=== PATIENT | male | born 1995 | race Caucasian/White ===

== ENCOUNTER 2021-08-03 06:29 | Emergency (ER) | payer OTHER ==
[~2021-08-03] VITALS: Ht 182.9 cm; Wt 91.8 kg
[2021-08-03] MEDS ORDERED: ONDA4TAB6 PO (09:35)
[2021-08-03 09:37] VITALS: BP 138/86
== END 2021-08-03 09:39 | disposition home or self-care (01) ==
LOC: M ED 06:29
DX: G43.909 Migraine, unspecified, not intractable, without status migrainosus (principal); D75.A Glucose-6-phosphate dehydrogenase (G6PD) deficiency without anemia

== ENCOUNTER 2023-01-16 10:01 | Emergency (ER) | payer OTHER ==
[~2023-01-16] VITALS: Ht 180.3 cm; Wt 94.0 kg
[~2023-01-16 10:01] MED LIST: ONDA4TAB6 PO
[2023-01-16 12:42] VITALS: BP 133/89
== END 2023-01-16 12:45 | disposition home or self-care (01) ==
LOC: M ED 10:01
DX: S62.306A Unspecified fracture of fifth metacarpal bone, right hand, initial encounter for closed fracture (principal); W22.09XA Striking against other stationary object, initial encounter; Y92.009 Unspecified place in unspecified non-institutional (private) residence as the place of occurrence of the external cause; Y93.89 Activity, other specified; Y99.8 Other external cause status; D75.A Glucose-6-phosphate dehydrogenase (G6PD) deficiency without anemia

== ENCOUNTER → 2023-01-18 | Outpatient (CLI) | payer OTHER | LOC: M SOG 16:32 | PROVIDERS: ATTEND Physician Assistant | DX: M79.641 Pain in right hand (principal) ==

== ENCOUNTER → 2023-01-22 | Outpatient (CLI) | payer OTHER | LOC: M SOG 16:10 | PROVIDERS: ATTEND Physician Assistant | DX: S62.334A Displaced fracture of neck of fourth metacarpal bone, right hand, initial encounter for closed fracture (principal); W18.30XA Fall on same level, unspecified, initial encounter; Y92.009 Unspecified place in unspecified non-institutional (private) residence as the place of occurrence of the external cause ==

== ENCOUNTER → 2023-02-15 | Outpatient (CLI) | payer OTHER | LOC: M SOG 08:18 | PROVIDERS: ATTEND Physician Assistant | DX: S62.336A Displaced fracture of neck of fifth metacarpal bone, right hand, initial encounter for closed fracture (principal); W18.30XA Fall on same level, unspecified, initial encounter; Y92.009 Unspecified place in unspecified non-institutional (private) residence as the place of occurrence of the external cause ==